=== PATIENT | female | born 1950 | race Caucasian/White ===

== ENCOUNTER 2020-01-01 01:36 | Emergency (ER) | payer BC ==
[~2020-01-01] VITALS: Ht 165.1 cm; Wt 78.9 kg
--- NOTE | 2020-01-01 01:48 | NUR ---
PT BIBSELF C/O WAKING UP WITH PALPITATIONS. PT STATES SHE CHECKED HER BP AT HOME AND SBP 200'S. PT DENIES CHEST PAIN, SOB, HEADACHE, DIZZINESS, NAUSEA, VOMITTING. PT AAOX4. AMBULATORY WITH STEADY GAIT. VITAL SIGNS STABLE. RESPIRATIONS EVEN AND UNLABORED. SKIN WARM AND INTACT. NO ACUTE DISTRESS NOTED AT THIS TIME. PT PLACED ON CONTINUOUS CYTOLOGIST AND PULSE OX, WILL CONTINUE TO MONITOR
--- NOTE | 2020-01-01 01:50 | NUR ---
DR. NAVAS AT BEDSIDE FOR EVALUATION
--- NOTE | 2020-01-01 01:57 | NUR ---
IV INITAITED LAC 20G. LABS DRAWN FROM SITE. RESIN MIXER AT BEDSIDE FOR COLLECTION. IV INTACT AND PATENT, PLACED ON SALINE LOCK
[2020-01-01 02:15] LABS: CALCIUM, SERUM 9.1 mg/dL (8.5-10.1); CARBON DIOXIDE 24 mmol/L (21-32); CHLORIDE 102 mmol/L (98-107); CREATININE 0.7 mg/dL (0.6-1.3); GLUCOSE 101 mg/dL (74-106); POTASSIUM 3.5 mmol/L (3.5-5.1); SODIUM SERUM 139 mmol/L (136-145); UREA NITROGEN, BLOOD 16 mg/dL (7-18)
--- NOTE | 2020-01-01 02:18 | NUR ---
RADIOLOGY AT BEDSIDE FOR CXR
[2020-01-01 03:11] LABS: BASOPHILS # (AUTO) 0.1 /CMM (0.0-0.2); BASOPHILS % (AUTO) 0.6 % (0.0-2.0); HEMATOCRIT 43 % (33-45); HEMOGLOBIN 14.3 g/dL (11.5-14.8); LYMPHOCYTES # (AUTO) 3.9 /CMM (0.8-4.8); LYMPHOCYTES % (AUTO) 44.3 % (20.0-44.0); MEAN CORPUSCULAR HGB CONC 33 g/dl (31.0-36.0); MEAN CORPUSCULAR VOLUME 88 fL (82-100); MONOCYTES # (AUTO) 0.8 /CMM (0.1-1.30); MONOCYTES % (AUTO) 8.7 % (2.0-12.0); NEUTROPHILS # (AUTO) 3.7 /CMM (1.8-8.9); NEUTROPHILS % (AUTO) 42.4 % (43.0-81.0); PLATELET COUNT (AUTO) 276 /CMM (150-450); RED BLOOD CELL COUNT(AUTO) 4.96 MIL/uL (4.0-5.2); WHITE BLOOD COUNT (AUTO) 8.8 K/uL (4.3-11.0)
[2020-01-01 04:11] VITALS: BP 141/76
--- NOTE | 2020-01-01 04:11 | NUR ---
Patient discharged to home in stable condition. Written and verbal after care instructions given. Patient verbalizes understanding of instruction.IV removed. Catheter intact and site benign. Pressure and 4x4 applied to site. No bleeding noted.Pt ambulatory with a steady gait
== END 2020-01-01 04:12 | disposition home or self-care (01) ==
LOC: ER 01:43
DX: I10 Essential (primary) hypertension (principal); R00.2 Palpitations
CPT/HCPCS: 36415; 71045-TC; 80048-TC; 84484-TC; 85025-TC